=== PATIENT | female | born 1980 | race Caucasian/White ===

== ENCOUNTER 2023-09-20 10:05 | Emergency (ER) | payer BC, SELFPAY ==
[2023-09-20 10:22] VITALS: BP 144/86; PULSE 80; RESP 18; TEMP 37.1; O2SAT 97; BMI 28.8
[2023-09-20 10:47] LABS: UTC Strep Screen (Rapid) Negative (Negative)
--- NOTE | 2023-09-20 10:49 | EXP.UTC ---
Discharge Plan Disposition Patient Disposition: Home, Self-Care Condition: Good Prescriptions Prescriptions: New prednisone [prednisone] 20 mg tablet 20 mg PO BID Qty: 10 0RF No Action progesterone micronized 200 mg capsule 200 mg PO DAILY Qty: 90 citalopram 40 mg tablet 10 mg PO DAILY Patient Comments: TAKE 1 TABLET BY MOUTH EVERY DAY doxycycline hyclate 100 mg tablet 100 mg PO BID Referrals Follow up/Referrals: Provider,Referral, MD [Primary Care Provider] - See instructions Activity Restrictions/Add. Instructions Additional Instructions/Restrictions: No sign of a bacterial infection. Likely viral. Viruses can take 7-14 days to run their course. Nasal saline and bulb syringe or nose Melissa to remove nasal drainage to help with nasal congestion. Hard to eat, drink, sleep with nasal congestion so important to keep this cleaned out. Monitor temp. Tylenol or Motrin as needed for pain or fever Encourage fluids, water, Gatorade, Powerade, Pedialyte if /toddler/child Warm salt water gargles Warm fluids Sore throat lozenges Sleep elevated Humidifier/vaporizer Follow-up immediately for new or worsening symptoms or no noticeable improvement over the next 48-72 hours. Clinical Impressions Clinical Impression: Upper respiratory disease Instructions Patient Instructions: DI for Viral Upper Respiratory Infection -- Adult Discharge ED Provider: Gaurav ([facility])[place] [facility] [place] General Stated complaint: Congestion,nausea,cough Mode of Arrival: Ambulatory Source of Information: Patient Limitations: No Limitations Time Seen by Provider: 09/20/23 10:49 Description of Symptoms (Recalled from Triage Doc. by RN): Pt's symptoms are cough, and fever. She has been exposed to flu. HEENT Symptoms (Recalled from RN notes): Yes Resp Symptoms (Recalled from RN notes): No Skin Symptoms (Recalled from RN notes): No MS Symptoms (Recalled from RN notes): No Functional Status (Recalled from RN notes): n/a History of Present Illness Provider Complaint: 43 yr old female presents for cough, and fever. She has been exposed to flu.was tested and was negative Related Data Home Medications Medication Instructions Recorded Confirmed progesterone micronized 200 mg 200 mg PO DAILY #90 caps 12/18/18 09/20/23 capsule citalopram 40 mg tablet 10 mg PO DAILY 09/20/23 09/20/23 doxycycline hyclate 100 mg tablet 100 mg PO BID 09/20/23 09/20/23 Previous Rx's Medication Instructions Recorded prednisone 20 mg tablet 20 mg PO BID #10 tabs 09/20/23 Allergies Allergy/AdvReac Type Severity Reaction Status Date / Time sulfamethoxazole Allergy Mild Verified 09/20/23 10:36 [From Bactrim] trimethoprim [From Bactrim] Allergy Mild Verified 09/20/23 10:36 Worker's Comp Is this a Worker's Comp case?: No PFSH PFS Disclaimer: The information contained in this section may have been updated after the patient was seen, as this information can be updated by other users. Social History , [employer]) Smoking Status: Former smoker alcohol intake: current substance use type: denies use current occupational status: employed Travel in the last 8 weeks: None household members: family housing: house ROS Obtained: Yes All systems reviewed & no additional complaints except as documented Constitutional Constitutional: Reports system reviewed and no additional complaints, except as documented and Reports as per HPI Eyes Eyes: Reports system reviewed and no additional complaints, except as documented and Reports as per HPI ENT Ears, Nose, Mouth, and Throat: Reports system reviewed and no additional complaints, except as documented, Reports as per HPI, Reports nasal congestion, Reports nasal discharge, Reports sinus pain, Reports sinus pressure and Reports sore throat Cardiovascular Cardiovascular: Reports system reviewed and no additional complaints, except as documented Respiratory Respiratory: Reports system reviewed and no additional complaints, except as documented, Reports as per HPI and Reports cough Gastrointestinal Gastrointestingal: Reports system reviewed and no additional complaints, except as documented Genitourinary Female Genitourinary: Reports system reviewed and no additional complaints, except as documented Musculoskeletal Musculoskeletal: Reports system reviewed and no additional complaints, except as documented Integumentary/Breasts Skin/Breast: Reports system reviewed and no additional complaints, except as documented Neurologic Neurologic: Reports system reviewed and no additional complaints, except as documented Endocrine Endocrine: Reports system reviewed and no additional complaints, except as documented Hematologic/Lymphatic Henatologic/Lymphatic: Reports system reviewed and no additional complaints, except as documented Allergic/Immunologic Allergic/Immunologic: Reports system reviewed and no additional complaints, except as documented Physical Exam General General appearance: alert and in no apparent distress Head Head exam: atraumatic Eye Eye exam: Present normal appearance and PERRL ENT ENT exam: Present normal oropharynx, mucous membranes moist and TM's normal bilaterally Respiratory Respiratory exam: Present normal lung sounds bilaterally Cardiovascular Cardiovascular exam: Present regular rate and normal rhythm Neurological Exam Neurological exam: Present alert and oriented X3 Skin Skin exam: Present warm Medical Decision Making Medical Records Medical records reviewed: Yes I reviewed the patient's medical records. Curtis Inquiry Pt receiving controlled substance: No Curtis was queried for this patient: No Vital Signs: 09/20/23 10:22 Temperature 98.8 F Temperature Source Oral Pulse Rate [Right Radial] 80 Respiratory Rate 18 Blood Pressure [Right Arm] 144/86 H Blood Pressure Mean [Right Arm] 105 Blood Pressure Source [Right Arm] Automatic Cuff Blood Pressure Position [Right Arm] Sitting 02 Sat by Pulse Oximetry 97 Oxygen Delivery Method Room Air Lab Data Lab results reviewed: Yes I reviewed the patient's lab results. Lab Results 09/20/23 10:40: Strep Scn Rapid Clinic Negative Orders (Tests/Meds): ORDERS Category Date Time Status Strep Screen Confirmation Stat Micro 09/20/23 10:40 Received
[2023-09-20 11:24] VITALS: BP 144/86; PULSE 80; RESP 18; TEMP 37.1; O2SAT 97
== END 2023-09-20 11:23 | disposition home or self-care (01) ==
PROVIDERS: Emergency Provider Nurse Practitioner Family
DX: R05.9 Cough, unspecified (principal); J06.9 Acute upper respiratory infection, unspecified; R50.9 Fever, unspecified; R09.81 Nasal congestion; R07.0 Pain in throat; Z20.828 Contact with and (suspected) exposure to other viral communicable diseases
CPT/HCPCS: 87880; 99204; 99212; G0463

== ENCOUNTER 2024-08-20 15:06 | Outpatient (CLI) | payer BC, SELFPAY ==
[2024-08-20 15:35] LABS: Basophils # 0.1 K/mm3 (0-0.2); Basophils % 0.5 % (0.1-2.0); Eosinophils # 0.3 K/mm3 (0.0-0.4); Eosinophils % 2.6 % (0.1-12.0); Hematocrit 43.3 % (37.0-47.0); Hemoglobin 14.7 g/dL (12.2-16.2); Lymphocytes # 2.7 K/mm3 (0.7-4.5); Lymphocytes % 26.9 % (10-50); Mean Corpuscular HGB Conc 33.9 g/dL (31.8-35.4); Mean Corpuscular Hemoglobin 32.2 pg (27.0-31.2); Mean Platelet Volume 11.3 fl (7.4-10.4); Monocytes # 0.7 K/mm3 (0.1-1.0); Monocytes % 6.8 % (1.7-9.3); Neutrophils # 6.3 K/mm3 (1.8-7.8); Neutrophils % 62.8 % (37.0-80.0); Platelet Count 169 K/mm3 (142-424); Red Blood Count 4.56 M/mm3 (4.20-5.40)
[2024-08-20 16:38] LABS: Alanine Aminotransferase 24 U/L (12-78); Albumin Level 4.2 g/dl (3.5-5.0); Albumin/Globulin Ratio 2.2 (1.1-1.8); Alkaline Phosphatase 75 U/L (38-126); Anion Gap 12.4 mEq/L (5-15); Aspartate Amino Transferase 27 U/L (14-36); Bilirubin,Total 0.5 mg/dl (0.2-1.3); Blood Urea Nitrogen 15 mg/dl (7-17); Calcium 9.1 mg/dl (8.4-10.2); Carbon Dioxide 26 mmol/L (22.0-30.0); Chloride 105 mmol/L (98-107); Estimated Glomerular Filt Rate 67 ml/min (>60); GFR (African American) 82 ML/MIN (>60); Globulin 1.9 g/dL (1.3-3.2); Glucose 77 mg/dl (74-100); Potassium 4.4 mmoL/L (3.5-5.1); Sodium 139 mmol/L (136-145); Total Protein,Serum 6.1 g/dl (6.3-8.2)
[2024-08-20 17:11] LABS: HCG,Quantitative < 2 mIU/ml (0-5.42)
== END 2024-08-20 23:59 | disposition home or self-care (01) ==
LOC: LAB 15:09
PROVIDERS: PCP Nurse Practitioner; Visit Provider Obstetrics & Gynecology
DX: N75.0 Cyst of Bartholin's gland (principal)
CPT/HCPCS: 36415; 80053; 84702; 85025

== ENCOUNTER 2024-08-23 07:08 | Day surgery (SDC) | payer BC, SELFPAY ==
[2024-08-23] VITALS (10 sets, daily range): BP systolic 127–148; BP diastolic 78–93; PULSE 54–69; RESP 16–22; TEMP 36.5–43; O2SAT 93–98; BMI 29.2
[2024-08-23] MEDS: LACTATED RINGERS 1000ML 1,000 ML 25 ML IV (07:36)
[2024-08-23] MEDS: ACETAMINOPHEN 500MG TAB 1000 MG PO (07:36)
--- NOTE | 2024-08-23 09:24 | P.PNANES_ITS ---
[facility] Disclaimer: The information contained in this section may have been updated after the patient was seen, as this information can be updated by other users. 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 Surgical History History of endometrial ablation Family History Grandmother Cancer Family/Other Cancer paternal aunt-breast Father Cancer brain Social History Smoking Status: Former smoker alcohol intake: current alcohol intake frequency: holidays/special occasions only substance use type: denies use current occupational status: employed Travel in the last 8 weeks: None household members: family housing: house Have you lived/traveled outside [place] in past 30 days?: No Contact w/someone who lives/traveled outside US past 30 days?: No Exposure to someone with infectious disease in past 14 days?: No Do you have a fever (greater than 100.4 F or 38 C)?: No Have you tested positive for COVID-19: No Exposed to someone with COVID-19 in past 14 days?: No Do you have a sore throat?: No Do you have a cough?: No Do you have any weakness?: No Do you have any diarrhea?: No Are you experiencing any unusual bleeding?: No Do you have any muscle aches/pain?: No Do you have any abdominal pain?: No Are you experiencing loss of taste or smell?: No [facility] Anesthesia Checklist Patient Identification Patient Identification: Arm Band and Verbal (Name & ) Structural Data Admitted From: Home Planned Operative Procedure/s: Bartholin's cyst Consent for Planned Operative Procedure(s) Verified: Yes Verified Documents: Surgical Consent and History and Physical NPO Status Verified Time NPO: 00:00 Chart Verification Results Verified: CBC, BMP and HCG Additional verifications Patient : No Anesthesia Reactions: No Hx Blood Transfusions: No Cardiovascular Assessment Heart Sounds: S1 & S2 Pulse Rhythm: Irregular Peripheral Edema: No Airway Assessment Mallampati Score:: Class II C-Spine Mobility Assessed: Yes TMJ Mobility Assessed: Yes Dentition: Good Dentition Neurological Assessment Level of Consciousness: Awake, Alert, Appropriate and Follows Commands Hx Seizures: No Numbness or tingling in extremities: No Anesthesia Plan Anesthesia Risk discussed: Yes Anesthesia Plan: Verified ASA Class: II Anesthesia Type: General
--- NOTE | 2024-08-23 10:27 | P.OP_ITS ---
Date of procedure: 08/23/24 Pre-op Diagnosis:: 1. Left Bartholin gland cyst Post-op Diagnosis:: 1. Left Bartholin gland cyst Procedure performed:: 1. Incision, drainage and irrigation of Left Bartholin gland cyst 2. Marsupialization of left Bartholin gland cyst Surgeon:: Lavern Ramey DO Manager Of Photography(s):: N/a [employer] AD[employer]:: Clifford Rodriguez Anesthesia: GETA Estimated blood loss (mL): 0 Clinical Note:: Mrs Lavern Dumas is a 44 yo [id number] who presents to [facility] for scheduled procedure. She complains of left Bartholin gland cyst. Cyst has been present for the past ~ 5 years. Prior to that she had a recurrent right Bartholin gland cyst. In 2019 she believes the right gland was removed at the same time as her endometrial ablation. After that is when the left gland cyst started. She states it is always present but waxes and wanes in size. She has had it drained with Word catheter placed several times and has drained it herself. She reports discomfort. No fever/chills. She also complains of low back pain and pelvic discomfort. Symptoms started last Friday. She thought she was getting a UTI. She has history of endometriosis. She has not had any uterine bleeding since endometrial ablation. Operative findings:: 1. 6 x 8 cm left Bartholin gland cyst - no erythema, induration or fluctuance Operative note:: Risks, benefits and alternatives were discussed with the patient. Risks include but are not limited to bleeding, infection and VTE. Patient voiced understanding and agreed to proceed. She was wheeled back to the operating room and placed under MAC without difficulty. She was placed in dorsal lithotomy position and prepped and draped in the normal sterile fashion. A thorough bimanual exam was performed. Left labia was grasped with sponge to help with retraction. An #11 blade scalpel was used to make a 1 cm incision inside left labia minora middle of Bartholin gland cyst. Copious amounts of mucus was evacuated from incision site. Cavity was irrigated with normal saline. The wall of the cyst was sutured with interrupted 3-0 Vicryl suture to the skin of laterally and medially. Patient was awaken from anesthesia without difficulty. She was transported to recovery room in stable condition. Patient will be discharged home when awake and ambulating. She was given postop instructions as well as instructions to follow-up in the office in 2 weeks. Condition: stable Disposition: same day Specimens:: N/a Complications:: None
--- NOTE | 2024-08-24 06:13 | P.PNANES_ITS ---
[facility] Anesthesia Record Part II Anesthesia Record Part II Discharge Time: 10:30 Destination: Surgical Day Care (OP Surgery) PACU nurse assessment reviewed?: Yes Patient Condition:: Good Anesthesia Complications:: None Swallowing reflex intact?: Yes Airway Patency: Patent Cyanosis?: No Blood Pressure: 140/86 SaO2: 97 Respiratory Rate: 22 Pulse Rate: 61 Temperature: 98 F Mental Status: Alert & Oriented Pain level:: 0 Nausea and/or vomitting:: None Intake, IV Amount: 0 Hydration: Adequate
[2024-08-24 06:14] VITALS: BP 140/86; PULSE 61; RESP 22; TEMP 36.6; O2SAT 97
== END 2024-08-23 10:59 | disposition home or self-care (01) ==
PROVIDERS: PCP Nurse Practitioner; Visit Provider Obstetrics & Gynecology
PROC: (CPT 56440; principal; 2024-08-23 08:45)
DX: N75.0 Cyst of Bartholin's gland (principal)
CPT/HCPCS: 56440; J1100; J1885; J2250; J2405; J3010; J7120

== ENCOUNTER 2025-01-15 14:52 | Emergency (ER) | payer BC, SELFPAY ==
[2025-01-15 14:55] VITALS: BP 207/94; PULSE 82; RESP 22; TEMP 36.9; O2SAT 97; BMI 26.6
--- OUTSIDE RECORDS SUMMARY | 2025-01-15 15:12 | XMS_ITS ---
Author Organization Unknown Medications Medication Instructions Effective Dates (start - stop) Status citalopram 20 MG Oral Tablet 10-29-12T00:00:00.000+00:00 - Completed citalopram 20 MG Oral Tablet 10-26-09:00:00.000+00:00 - Completed citalopram 20 MG Oral Tablet 10-28-04:00:00.000+00:00 - Completed citalopram 20 MG Oral Tablet 10-27-08:00:00.000+00:00 - Completed progesterone 200 MG Oral Capsule [id number]:00:00.000+00:00 - Completed 24 HR bupropion hydrochlorid e 300 MG Extended Release Oral Tablet [id number]:00:00.00 0+00:00 - Completed progesterone 200 MG Oral Capsule [id number]:00:00.000+00:00 - Completed 24 HR bupropion hydrochlorid e 300 MG Extended Release Oral Tablet [id number]:00:00.00 0+00:00 - Completed citalopram 20 MG Oral Tablet 10-25-13:00:00.000+00:00 - Completed diazepam 5 MG Oral Tablet :00:00.000+00:00 - Completed citalopram 20 MG Oral Tablet 10-24-12:00:00.000+00:00 - Completed 24 HR bupropion hydrochlorid e 150 MG Extended Release Oral Tablet [id number]:00:00.00 0+00:00 - Completed triazolam 0.25 MG Oral Tablet 20 14-02-19:00:00.000+00:00 - Completed 24 HR bupropion hydrochlorid e 150 MG Extended Release Oral Tablet [id number]:00:00.00 0+00:00 - Completed amoxicillin 875 MG / clavula hector 125 MG Oral Tablet [id number]:00:00.000+00:0 0 - Completed Patient Care team information Name Category Status Period Participants - - Proposed period not known -
--- NOTE | 2025-01-15 15:24 | ED_ITS ---
Discharge Plan Disposition Patient Disposition: Home, Self-Care Prescriptions Prescriptions: New hydroxyzine pamoate 25 mg capsule 25 mg PO TID PRN (Reason: nausea and vomiting) 30 Days Qty: 90 0RF No Action progesterone micronized 200 mg capsule 200 mg PO DAILY Qty: 90 ashwagandha root extract 300 mg Capsule 300 mg PO DAILY Referrals Follow up/Referrals: Jonna Briones APRN [Primary Care Provider] - See instructions Activity Restrictions/Add. Instructions Additional Instructions/Restrictions: Today you were evaluated in the emergency department. Your lab work was normal, your thyroid studies were normal. Please stop Effexor. Please go to emergency department to be evaluated by the [facility] program. Clinical Impressions Clinical Impression: Anxiety Instructions Patient Instructions: Anxiety and Panic Attacks (Alternative Therapy) Print Language Print Language: Setswana Discharge ED Provider: Cm Yuan Adult HPI <Kanwal Nation APRN - Last Filed: 01/15/25 21:55> General Chief complaint: Anxiety Stated complaint: Anxiety Time Seen by Provider: 01/15/25 15:08 Mode of Arrival: Ambulatory Source of Information: Patient Description of Symptoms (Recalled from ER Triage Doc. by RN): Patient was seen Friday at PCP with new medications given. PCP thought may be her thyroid. Patient has complaint of anxiety with sweating, hot flashes/cold sweats, not able to eat. Denies fluttering in chest. Worsens after awakening. History of Present Illness HPI narrative: patient is a 44-year-old female no significant PMHx who presents to the ED for complaints of anxiety like symptoms. Patient states over the past several months she has experienced multiple symptoms of anxiety including hair thinning, fatigue, changes in her nailbeds. She reports since Friday her anxiety symptoms have greatly increased. Related Data Home Medications ?Medication ?Instructions ?Recorded ?Confirmed progesterone micronized 200 mg 200 mg PO DAILY #90 caps 12/18/18 09/27/24 capsule ashwagandha root extract 300 mg 300 mg PO DAILY 08/20/24 09/27/24 capsule Previous Rx's ?Medication ?Instructions ?Recorded hydroxyzine pamoate 25 mg capsule 25 mg PO TID PRN nausea and 01/15/25 vomiting 30 days #90 caps Allergies Allergy/AdvReac Type Severity Reaction Status Date / Time sulfamethoxazole (From Allergy Mild Swelling Verified 09/27/24 15:46 Bactrim) of Lip/Tongue/Throat trimethoprim (From Bactrim) Allergy Mild Swelling Verified 09/27/24 15:46 of Lip/Tongue/Throat PFSH <Kanwal Nation APRN - Last Filed: 01/15/25 21:55> PFS Disclaimer: The information contained in this section may have been updated after the patient was seen, as this information can be updated by other users. 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 Surgical History History of endometrial ablation Family History Grandmother Cancer Family/Other Cancer paternal aunt-breast Father Cancer brain Social History Smoking Status: Current every day smoker alcohol intake: current alcohol intake frequency: holidays/special occasions only substance use type: denies use current occupational status: employed Travel in the last 8 weeks?: None household members: family housing: house Have you lived/traveled outside [place] in past 30 days?: No Contact w/someone who lives/traveled outside [place] past 30 days?: No Exposure to someone with infectious disease in past 14 days?: No Do you have a fever (greater than 100.4 F or 38 C)?: No Have you tested positive for COVID-19?: No Exposed to someone with COVID-19 in past 14 days?: No Do you have a sore throat?: No Do you have a cough?: No Do you have any weakness?: No Do you have any diarrhea?: No Are you experiencing any unusual bleeding?: No Do you have any muscle aches/pain?: No Do you have any abdominal pain?: No Are you experiencing loss of taste or smell?: No Other Medical History Have you received the Pneumonia Vaccine: No <Knawal Nation APRN - Last Filed: 01/15/25 21:55> ROS Obtained: Yes Systems reviewed as appropriate & no additional complaints except as documented Physical Exam <Kanwal Nation APRN - Last Filed: 01/15/25 21:55> General General appearance: alert and anxious Head Head exam: atraumatic and normocephalic Eye Eye exam: Present normal appearance and PERRL ENT ENT exam: Present normal exam Neck Neck exam: Present normal inspection Chest Chest inspection: Present normal inspection and symmetric chest wall rise; Absent tenderness Respiratory Respiratory exam: Present normal lung sounds bilaterally Cardiovascular Cardiovascular exam: Present regular rate Abdominal Exam Abdominal exam: Present soft and normal bowel sounds; Absent tenderness Extremities Exam Extremities exam: Present normal inspection and full ROM Back Exam Back exam: Present normal inspection and full ROM Neurological Exam Neurological exam: Present alert and oriented X3 Psychiatric Psychiatric exam: Present normal affect and normal mood Skin Skin exam: Present warm and dry Medical Decision Making <Kanwal Nation APRN - Last Filed: 01/15/25 21:55> Medical Records Screening: Per USPSTF and CDC recommendations, given the prevalence of disease in our region, it is our hospital?s policy to screen for HIV and viral Hepatitis for all patients aged 18 and over and those with ongoing risk factors. Curtis Inquiry Pt receiving controlled substance: No Vital Signs: 01/15/25 14:55 01/15/25 16:16 01/15/25 16:36 Temperature 98.4 F Temperature Source Oral Pulse Rate 59 L 59 L Pulse Rate [Right] 82 Respiratory Rate 22 18 Blood Pressure 158/119 H 168/92 H Blood Pressure [Right Arm] 207/94 H Blood Pressure Mean 123 Blood Pressure Mean [Right Arm] 131 02 Sat by Pulse Oximetry 97 99 99 Oxygen Delivery Method Room Air 01/15/25 17:00 01/15/25 17:25 Temperature 98.8 F Temperature Source Oral Pulse Rate 73 91 H Pulse Rate [Right] Respiratory Rate 18 22 Blood Pressure 158/89 H 150/89 H Blood Pressure [Right Arm] Blood Pressure Mean 112 Blood Pressure Mean [Right Arm] 02 Sat by Pulse Oximetry 98 Oxygen Delivery Method Room Air Lab Data Lab Results 01/15/25 15:30: WBC 10.6, RBC 5.24, Hgb 16.9 H, Hct 48.5 H, MCV 92.6, MCH 32.3 H , MCHC 34.8, RDW 11.9, Plt Count 166, MPV 11.7 H, Neut % (Auto) 66.0, Lymph % (Auto) 25.5, [place] % (Auto) 6.1, Eos % (Auto) 1.5, Baso % (Auto) 0.6, Neut # (Auto) 7.0, Lymph # (Auto) 2.7, [place] # (Auto) 0.7, Eos # (Auto) 0.2, Baso # (Auto) 0.1, Sodium 138, Potassium 3.8, Chloride 107, Carbon Dioxide 24, Anion Gap 10.8, BUN 12, Creatinine 0.90, Estimated Creat Clear 101, Estimated GFR 67, Est GFR ( Amer) 82, Glucose 98, Calcium 10.0, Total Bilirubin 0.8, AST 26, ALT 19, Alkaline Phosphatase 91, Total Protein 7.7 D, Albumin 5.1 H, Globulin 2.6, Albumin/Globulin Ratio 2.0 H, TSH 1.94, Free T4 1.16, Serum HCG, Qual Negative, Plasma/Serum Alcohol < 10 01/15/25 15:30 01/15/25 15:30 Orders (Tests/Meds): ED MEDICATIONS Discontinued Medications Generic Name Dose Route Start Last Admin Trade Name Freq PRN Reason Stop Dose Admin Hydroxyzine Pamoate 25 mg 01/15/25 15:24 01/15/25 15:34 Hydroxyzine Pamoate 25mg Capsule PO 02/14/25 15:23 25 mg Q6HP PRN Administration Itching ORDERS Category Date Time Status CBC w/Auto Diff [Complete Blood Count Auto Diff] Stat Lab 01/15/25 15:30 Completed CMP [Comprehensive Metabolic Panel] Stat Lab 01/15/25 15:30 Completed Ethyl Alcohol Stat Lab 01/15/25 15:30 Completed Free T4 (Free Thyroxine) Stat Lab 01/15/25 15:30 Completed HCG Qualitative, Serum Stat Lab 01/15/25 15:30 Completed TSH [Thyroid Stimulating Hormone] Stat Lab 01/15/25 15:30 Completed Medical Decision Narrative: In summary, patient is a 44-year-old female no significant PMHx who presents to the ED for complaints of anxiety like symptoms. Patient states over the past several months she has experienced multiple symptoms of anxiety including hair thinning, fatigue, changes in her nailbeds. She reports since Friday her anxiety symptoms have greatly increased. She has been evaluated by PCP who advised her she had a low vitamin D. She reports that she does work a high stress job however does not feel that it is more stressful than normal. Patient states that she has previously used alcohol however has not used alcohol since Friday and denied alcoholism, denies possibility of withdrawal. Takes hormone replacement and [place] supplement. On Friday, she started Effexor that was prescribed by her PCP which she is concerned may have made her symptoms worse. Denies fever, chills, headache, visual disturbance, chest pain, shortness of breath, abdominal pain, nausea, vomiting. Denies SI and HI. Upon initial evaluation patient is alert, oriented and cooperative. She is stable. Appears anxious in room, frequently tapping her leg. Differential diagnosis include anxiety, abnormal thyroid levels, electrolyte imbalance, among others. Discussed with patient we will proceed with hematologic labs and administer Vistaril for symptomatic relief. CBC unremarkable for any leukocytosis, stable H&H. CMP unremarkable for any actionable abnormalities. hCG negative. Serum alcohol < 10. TSH 1.94. Discussed with patient that workup is overall unremarkable. Upon reassessment, she states that her anxiety has decreased a bit but is still present. I advised her to stop the Effexor due to statements her s/s exacerbated at the time she started it. Given this, I feel the patient is safe to be discharged home. During discharge, patient stated that she now felt like her anxiety was returning. She states that she feels like she needs to [place] out of every room she is in. She continues to deny SI or HI. I discussed with her I feel that she needs to be seen by mental health provider soon, I advised her of the [facility] program at and she is agreeable to allow her spouse to take her to ED to be evaluated by [facility]. She was hemodynamically stable, alert and oriented upon leaving the ED with spouse. Although this is not a formal transfer, I called ED and gave report. <Cm Yuan MD - Last Filed: 01/16/25 23:27> Vital Signs: 01/15/25 14:55 01/15/25 16:16 01/15/25 16:36 Temperature 98.4 F Temperature Source Oral Pulse Rate 59 L 59 L Pulse Rate [Right] 82 Respiratory Rate 22 18 Blood Pressure 158/119 H 168/92 H Blood Pressure [Right Arm] 207/94 H Blood Pressure Mean 123 Blood Pressure Mean [Right Arm] 131 02 Sat by Pulse Oximetry 97 99 99 Oxygen Delivery Method Room Air 01/15/25 17:00 01/15/25 17:25 Temperature 98.8 F Temperature Source Oral Pulse Rate 73 91 H Pulse Rate [Right] Respiratory Rate 18 22 Blood Pressure 158/89 H 150/89 H Blood Pressure [Right Arm] Blood Pressure Mean 112 Blood Pressure Mean [Right Arm] 02 Sat by Pulse Oximetry 98 Oxygen Delivery Method Room Air Lab Data Lab Results 01/15/25 15:30: WBC 10.6, RBC 5.24, Hgb 16.9 H, Hct 48.5 H, MCV 92.6, MCH 32.3 H , MCHC 34.8, RDW 11.9, Plt Count 166, MPV 11.7 H, Neut % (Auto) 66.0, Lymph % (Auto) 25.5, [place] % (Auto) 6.1, Eos % (Auto) 1.5, Baso % (Auto) 0.6, Neut # (Auto) 7.0, Lymph # (Auto) 2.7, [place] # (Auto) 0.7, Eos # (Auto) 0.2, Baso # (Auto) 0.1, Sodium 138, Potassium 3.8, Chloride 107, Carbon Dioxide 24, Anion Gap 10.8, BUN 12, Creatinine 0.90, Estimated Creat Clear 101, Estimated GFR 67, Est GFR ( Amer) 82, Glucose 98, Calcium 10.0, Total Bilirubin 0.8, AST 26, ALT 19, Alkaline Phosphatase 91, Total Protein 7.7 D, Albumin 5.1 H, Globulin 2.6, Albumin/Globulin Ratio 2.0 H, TSH 1.94, Free T4 1.16, Serum HCG, Qual Negative, Plasma/Serum Alcohol < 10 Orders (Tests/Meds): ED MEDICATIONS Discontinued Medications Generic Name Dose Route Start Last Admin Trade Name Freq PRN Reason Stop Dose Admin Hydroxyzine Pamoate 25 mg 01/15/25 15:24 01/15/25 15:34 Hydroxyzine Pamoate 25mg Capsule PO 02/14/25 15:23 25 mg Q6HP PRN Administration Itching ORDERS Category Date Time Status CBC w/Auto Diff [Complete Blood Count Auto Diff] Stat Lab 01/15/25 15:30 Completed CMP [Comprehensive Metabolic Panel] Stat Lab 01/15/25 15:30 Completed Ethyl Alcohol Stat Lab 01/15/25 15:30 Completed Free T4 (Free Thyroxine) Stat Lab 01/15/25 15:30 Completed HCG Qualitative, Serum Stat Lab 01/15/25 15:30 Completed TSH [Thyroid Stimulating Hormone] Stat Lab 01/15/25 15:30 Completed Medical Decision Narrative: In summary, patient is a 44-year-old female no significant PMHx who presents to the ED for complaints of anxiety like symptoms. Patient states over the past several months she has experienced multiple symptoms of anxiety including hair thinning, fatigue, changes in her nailbeds. She reports since Friday her anxiety symptoms have greatly increased. She has been evaluated by PCP who advised her she had a low vitamin D. She reports that she does work a high stress job however does not feel that it is more stressful than normal. Patient states that she has previously used alcohol however has not used alcohol since Friday and denied alcoholism, denies possibility of withdrawal. Takes hormone replacement and [place] supplement. On Friday, she started Effexor that was prescribed by her PCP which she is concerned may have made her symptoms worse. Denies fever, chills, headache, visual disturbance, chest pain, shortness of breath, abdominal pain, nausea, vomiting. Denies SI and HI. Upon initial evaluation patient is alert, oriented and cooperative. She is stable. Appears anxious in room, frequently tapping her leg. Differential diagnosis include anxiety, abnormal thyroid levels, electrolyte imbalance, among others. Discussed with patient we will proceed with hematologic labs and administer Vistaril for symptomatic relief. CBC unremarkable for any leukocytosis, stable H&H. CMP unremarkable for any actionable abnormalities. hCG negative. Serum alcohol < 10. TSH 1.94. Discussed with patient that workup is overall unremarkable. Upon reassessment, she states that her anxiety has decreased a bit but is still present. I advised her to stop the Effexor due to statements her s/s exacerbated at the time she started it. Given this, I feel the patient is safe to be discharged home. During discharge, patient stated that she now felt like her anxiety was returning. She states that she feels like she needs to [place] out of every room she is in. She continues to deny SI or HI. I discussed with her I feel that she needs to be seen by mental health provider soon, I advised her of the [facility] program at and she is agreeable to allow her spouse to take her to ED to be evaluated by [facility]. She was hemodynamically stable, alert and oriented upon leaving the ED with spouse. Although this is not a formal transfer, I called ED and gave report. I was consulted by the KAREN, and we discussed the complexity of the problems being addressed.I approved the treatment and management plan for this patient?s care in the Emergency Department, thus performing a substantive portion of the medical decision making.Signed, MD FREDDY HeardA Critical Care <aKnwal Nation APRN - Last Filed: 01/15/25 21:55> Critical Care Time Critical Care Time: No
[2025-01-15] MEDS: hydrOXYzine pamoate 25MG CAPSULE 25 MG PO (15:34)
[2025-01-15 15:50] LABS: Albumin Level 5.1 g/dl (3.5-5.0); Chloride 107 mmol/L (98-107); Potassium 3.8 mmoL/L (3.5-5.1); Sodium 138 mmol/L (136-145)
[2025-01-15 15:53] LABS: Alanine Aminotransferase 19 U/L (12-78); Alkaline Phosphatase 91 U/L (38-126); Anion Gap 10.8 mEq/L (5-15); Aspartate Amino Transferase 26 U/L (14-36); Bilirubin,Total 0.8 mg/dl (0.2-1.3); Blood Urea Nitrogen 12 mg/dl (7-17); Carbon Dioxide 24 mmol/L (22.0-30.0); Creatinine Clearance Estimated 101 mL/min (50-200); Estimated Glomerular Filt Rate 67 ml/min (>60); GFR (African American) 82 ML/MIN (>60); Globulin 2.6 g/dL (1.3-3.2); Glucose 98 mg/dl (74-100); Total Protein,Serum 7.7 g/dl (6.3-8.2)
[2025-01-15 16:16] VITALS: BP 158/119; PULSE 59; O2SAT 99
[2025-01-15 16:16] LABS: Basophils # 0.1 K/mm3 (0-0.2); Basophils % 0.6 % (0.1-2.0); Eosinophils # 0.2 Kmm3 (0.0-0.4); Eosinophils % 1.5 % (0.1-12.0); Hematocrit 48.5 % (37.0-47.0); Hemoglobin 16.9 g/dL (12.2-16.2); Immature Granulocytes # 0.03 10^3uL; Immature Granulocytes % 0.3 %; Lymphocytes # 2.7 K/mm3 (0.7-4.5); Lymphocytes % 25.5 % (10-50); Mean Corpuscular HGB Conc 34.8 g/dL (31.8-35.4); Mean Corpuscular Hemoglobin 32.3 pg (27.0-31.2); Mean Corpuscular Volume 92.6 fl (81-99); Mean Platelet Volume 11.7 fl (7.4-10.4); Monocytes # 0.7 K/mm3 (0.1-1.0); Monocytes % 6.1 % (1.7-9.3); Nucleated Red Blood Cells # 0 10^3/uL; Nucleated Red Blood Cells % 0 %; Platelet Count 166 K/mm3 (142-424); Red Blood Count 5.24 M/mm3 (4.20-5.40); Red Cell Distribution Width 11.9 % (11.5-17.5); Red Cell Distribution Width-SD 41.1 fL; White Blood Count 10.6 K/mm3 (4.8-10.8)
[2025-01-15 16:24] LABS: HCG Qualitative, Serum Negative (Negative); Thyroid Stimulating Hormone 1.94 uIU/mL (0.465-4.68)
[2025-01-15 16:25] LABS: Ethyl Alcohol < 10 mg/dl (0-10)
[2025-01-15 16:36] VITALS: BP 168/92; PULSE 59; RESP 18; O2SAT 99
[2025-01-15 16:43] LABS: Free T4 (Free Thyroxine) 1.16 ng/dl (0.78-2.19)
[2025-01-15 17:00] VITALS: BP 158/89; PULSE 73; RESP 18; O2SAT 98
[2025-01-15 17:25] VITALS: BP 150/89; PULSE 91; RESP 22; TEMP 37.1; O2SAT 98
== END 2025-01-15 17:27 | disposition home or self-care (01) ==
PROVIDERS: Nurse Practitioner; Emergency Provider Emergency Medicine; PCP Nurse Practitioner
DX: F41.9 Anxiety disorder, unspecified (principal)
CPT/HCPCS: 80053; 80320; 84439; 84443; 84703; 85025; 99283